=== PATIENT | female | born 2005 | race Two or more races ===

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

== ENCOUNTER 2025-05-09 23:25 | Emergency (ER) | payer BC, OTHER ==
[~2025-05-09] VITALS: Ht 170.2 cm; Wt 97.0 kg
[2025-05-10] MEDS ORDERED: ONDANSETRON HCL 4 MG/2 ML VIAL IM ONE
[2025-05-10] MEDS ORDERED: AZIT500T66 PO (00:05)
[2025-05-10] MEDS ORDERED: ZOFR4T PO (00:05)
[2025-05-10] MEDS ORDERED: PRED20TA2 PO (00:05)
--- NOTE | 2025-05-10 00:08 | ED.PDOC ---
Eye-HPI HPI Comments SORE THROAT AND BUMPS ON TONGUE FOR 1 WEEK. denies fevers and chills Chief Complaint: Sore Throat Time Seen by MD: 23:31 Primary Care Provider: Sammy Diehl Notes: Nurses Notes, Medications, Allergies Allergies: Coded Allergies: NO KNOWN ALLERGIES (Unverified , 04/11/12) Information Source: Patient Mode of Arrival: Ambulatory Family History Family History: Unknown Social History Smoker: Non-Smoker Alcohol: Denies ETOH Use Drugs: Denies Drug Use Lives In: Home Physical Exam General Appearance: No Apparent Distress, Normal HEENT: Pharynx Normal, Tonsillar Exudate (exudate) Neck: Full Range of Motion, Non-Tender Respiratory: Lungs Clear, No Respiratory Distress, Normal Breath Sounds Cardiovascular: No Edema, No JVD, No Murmur, No Gallop, Normal Peripheral Pulses, Regular Rate/Rhythm Breast Exam: Deferred Gastrointestinal: No Organomegaly, Non Tender, No Pulsatile Mass, Normal Bowel Sounds, Soft Genitalia: Deferred Pelvic: Deferred Rectal: Deferred Extremities: Normal capillary refill, Normal range of motion, No pedal edema Musculoskeletal : Apperance: Normal Neurologic: Alert, No Motor Deficits, Normal Affect, Normal Mood, No Sensory Deficits Cerebellar Function: Normal Reflexes: NOT DONE Skin: Dry, Normal Color, Warm Lymphatic: No Adenopathy Was a procedure done? Was a procedure done?: No EENT DIFF Eye: N/A Ear: N/A Nose: N/A Mouth: N/A Sore Throat: Damián's Angina, Peritonsillar Abscess, Peritonsillar Cellulitis, Pharyngitis, Streptococcal, Viral Pharyngitis X-Ray, Labs, Meds, VS Vital Signs Date Time Temp Pulse Resp B/P (MAP) Pulse Ox O2 Delivery O2 Flow Rate FiO2 05/09/25 23:26 98.6 78 18 130/81 98 98.6 Time of 1ST Reevaluation: 23:21 Reevaluation 1ST: Unchanged Time of 2ND Reevaluation: 00:05 Reevaluation 2ND: Improved Patient Education/Counseling: Diagnosis, Treatment Family Education/Counseling: Diagnosis, Treatment, Prognosis, Need For Follow Up SEPSIS Sepsis Screen Date sepsis recognized/suspect: May 09, 2025 Time Sepsis recognized/suspect: 2329 Recent Procedure: No On Antibiotic Therapy: No Respiratory Rate >20: No Heart Rate >90: No Temp<36 C (96.8 F) or >38.3 C: No SBP <90 or MAP <65 mmHG: No New Acute Mental Status Change: No Is the patient on CPAP, BIPAP,: No Physician Orders Ceftriaxone Sodium (Rocephin) (05/10/25 00:00) Dexamethasone Injection (Decadron Inject (05/10/25 00:00) Ondansetron Hcl (Zofran) (05/10/25 00:00) Vital Signs Date Time Temp Pulse Resp B/P (MAP) Pulse Ox O2 Delivery O2 Flow Rate FiO2 05/09/25 23:26 98.6 78 18 130/81 98 98.6 Departure 1 Departure Time of Disposition: 00:02 Impression: Primary Impression: Recurrent streptococcal tonsillitis Disposition: HOME / SELF CARE / HOMELESS Condition: Stable e-Prescriptions Ondansetron Odt 4MG Tab (ZOFRAN PO) 4 Mg Tb 4 MG PO TID PRN for 5 Days, #15 TAB ODT TAB-DISSOLVE IN MOUTH, THEN SWALLOW Prov: FOREST FELIPE 05/10/25 Prednisone (Prednisone) 20 Mg Tab 20 MG PO DAILY@BREAKFAST for 4 Days, #4 MG Prov: FOREST FELIPE 05/10/25 Azithromycin (Azithromycin) 500 Mg Tab 500 MG PO DAILY for 5 Days, #5 TAB Prov: FOREST FELIPE 05/10/25 Discharged With: Relative (Father) Critical Care Note Critical Care Time?: No Stability Stability form required: FOREST Patino May 10, 2025 00:08
[2025-05-10] MEDS: ONDANSETRON ODT 4 MG TAB PO ONE (00:20)
[2025-05-10] MEDS: cefTRIAXone SOD 1,000 MG VL IM ONE (00:20)
[2025-05-10 00:24] VITALS: BP 130/81; PULSE 78; RESP 18; TEMP 98.6; O2SAT 98
== END 2025-05-10 00:25 | disposition home or self-care (01) ==
LOC: ER 23:25
DX: J03.00 Acute streptococcal tonsillitis, unspecified (principal)
CPT/HCPCS: 96372; 99284; J0696; J1100; Q0162

== ENCOUNTER 2025-08-01 15:46 | Emergency (ER) | payer BC, OTHER ==
[~2025-08-01 15:46] MED LIST: AMOX875T4 PO
[2025-08-01] MEDS ORDERED: PRED20TA2 PO (17:13)
[2025-08-01] MEDS ORDERED: AUG875T PO (17:13)
== END 2025-08-01 15:47 | disposition left against medical advice (07) ==
LOC: ER 15:46
DX: J02.9 Acute pharyngitis, unspecified (principal); Z79.899 Other long term (current) drug therapy

== ENCOUNTER 2025-08-01 16:21 | Emergency (ER) | payer BC, OTHER ==
[~2025-08-01] VITALS: Ht 170.2 cm; Wt 99.0 kg
--- NOTE | 2025-08-01 16:53 | ED.PDOC ---
Eye-HPI HPI Comments 19-year-old female presents to the ED for a chief complaint of sore throat associated with difficulty swallowing that started 2-3 days ago. Patient reports previous similar symptoms in which her tonsils become enlarged. Patient denies any fever, chills, nausea, vomiting, or any other flu-like symptoms. Chief Complaint: Sore Throat Time Seen by MD: 16:49 Primary Care Provider: Sammy Reviewed Notes: Nurses Notes, Medications, Allergies Allergies: Coded Allergies: NO KNOWN ALLERGIES (Unverified , 04/11/12) Home Meds Active Scripts Amoxicillin & Pot Clavulanate (Amoxicillin/Potassium Cla) 875 Mg Tab, 1 TAB PO BID for 10 Days, #20 TAB 0 Refills Prov:KYLE CROFT 07/31/25 Discontinued Scripts Ibuprofen (Ibuprofen) 800 Mg Tab, 1 TAB PO TID PRN for 30 Days, #90 TAB Prov:FOREST FELIPE 06/29/25 Information Source: Patient Mode of Arrival: Ambulatory Timing: Days (2-3) Duration: Since onset Quality: Pain, Red Associated signs and symptoms: Sore Throat Past Medical History PAST MEDICAL HISTORY: Denies Surgical History: Denies all surgeries PLASTIC DUPLICATOR History: No Pertinent PLASTIC DUPLICATOR History Family History Family History: Unknown Social History Smoker: Non-Smoker Alcohol: Denies ETOH Use Drugs: Denies Drug Use Lives In: Home Constitutional: denies: chills, diaphoresis, fatigue, fever, malaise, sweats, weakness, others EENTM: reports: throat pain, throat swelling; denies: blurred vision, double vision, ear bleeding, ear discharge, ear drainage, ear pain, ear ringing, eye pain, eye redness, hearing loss, mouth pain, mouth swelling, nasal discharge, nose bleeding, nose congestion, nose pain, photophobia, tearing, voice changes, others Respiratory: denies: cough, hemoptysis, orthopnea, SOB at rest, shortness of breath, SOB with excertion, stridor, wheezing, others Cardiovascular: denies: chest pain, dizzy spells, diaphoresis, Dyspnea on exertion, edema, irregular heart beat, left arm pain, lightheadedness, palpitations, PND, syncope, others Gastrointestinal: denies: abdomen distended, abdominal pain, blood streaked bowels, constipated, diarrhea, dysphagia, difficulty swallowing, hematemesis, melena, nausea, poor appetite, poor fluid intake, rectal bleeding, rectal pain, vomiting, others Genitourinary: denies: abnormal vagina bleeding, burning, dyspareunia, dysuria, flank pain, frequency, hematuria, incontinence, pain, , vagina discharge, urgency, others Neurological: denies: dizziness, fainting, headache, left sided numbness, left sided weakness, numbness, paresthesia, pre-existing deficit, right sided numbness, right sided weakness, seizure, speech problems, tingling, tremors, weakness, others Musculoskeletal: denies: back pain, gout, joint pain, joint swelling, muscle pain, muscle stiffness, neck pain, others Integumetry: denies: bruises, change in color, change in hair/nails, dryness, laceration, lesions, lumps, rash, wounds, others Allergic/Immunocompromised: denies: Difficulty Healing, Frequent Infections, Hives, Itching, others Hematologic/Lymphatic: denies: anemia, blood clots, easy bleeding, easy bruising, swollen glands, others Endocrine: denies: excessive hunger, excessive sweating, excessive thirst, excessive urination, flushing, intolerance to cold, intolerance to heat, unexplained weight gain, unexplained weight loss, others Psychiatric: denies: anxiety, bipolar disorder, depression, hopeless, panic disorder, schizophrenia, sleepless, suicidal, others All Other Systems: Reviewed and Negative Physical Exam General Appearance: Moderate Distress HEENT: Tonsillar Exudate Neck: Full Range of Motion, Non-Tender, Normal, Normal Inspection Respiratory: Chest Non-Tender, Lungs Clear, No Accessory Muscle Use, No Respiratory Distress, Normal Breath Sounds Cardiovascular: No Edema, No JVD, No Murmur, No Gallop, Normal Peripheral Pulses, Regular Rate/Rhythm Breast Exam: Deferred Gastrointestinal: No Organomegaly, Non Tender, No Pulsatile Mass, Normal Bowel Sounds, Soft Genitalia: Deferred Pelvic: Deferred Rectal: Deferred Extremities: No calf tenderness, Normal capillary refill, Normal inspection, Normal range of motion, Non-tender, No pedal edema Musculoskeletal : Apperance: Normal Neurologic: Alert, agent licensing clerk II-XII nml as Tested, No Motor Deficits, Normal Affect, Normal Mood, No Sensory Deficits Cerebellar Function: Normal Reflexes: Normal Skin: Dry, Normal Color, Warm Peripheral Pulses: 3+ Radial (R), 3+ Radial (L) Lymphatic: No Adenopathy Was a procedure done? Was a procedure done?: No EENT DIFF Eye: N/A, Bacterial, Viral Sore Throat: Damián's Angina, Peritonsillar Abscess, Peritonsillar Cellulitis X-Ray, Labs, Meds, VS Vital Signs Date Time Temp Pulse Resp B/P (MAP) Pulse Ox O2 Delivery O2 Flow Rate FiO2 08/01/25 16:22 98.3 66 18 154/105 99 98.3 Patient alert. Came in because of sore throat. Vitals stable. Answering questions. On examination she does have enlarged tonsils with exudate. Was given Rocephin. Was given prescription of prednisone Augmentin antibiotic. Explained to the patient. Was told to follow up with her primary care physician. Was told to come back if there is any problem. Time of 1ST Reevaluation: 16:52 Reevaluation 1ST: Unchanged Patient Education/Counseling: Diagnosis, Treatment, Prognosis Family Education/Counseling: No Family Present SEPSIS Sepsis Screen Date sepsis recognized/suspect: Aug 01, 2025 Time Sepsis recognized/suspect: 4 Recent Procedure: No On Antibiotic Therapy: No Respiratory Rate >20: No Heart Rate >90: No Temp<36 C (96.8 F) or >38.3 C: No SBP <90 or MAP <65 mmHG: No New Acute Mental Status Change: No Is the patient on CPAP, BIPAP,: No Physician Orders Ceftriaxone Sodium (Rocephin) (08/01/25 17:15) Vital Signs Date Time Temp Pulse Resp B/P (MAP) Pulse Ox O2 Delivery O2 Flow Rate FiO2 08/01/25 16:22 98.3 66 18 154/105 99 98.3 Departure 1 Departure Time of Disposition: 17:07 Impression: Primary Impression: Acute tonsillitis Qualified Codes: J03.90 - Acute tonsillitis, unspecified Disposition: HOME / SELF CARE / HOMELESS Condition: Good e-Prescriptions Prednisone (Prednisone) 20 Mg Tab 20 MG PO DAILY for 3 Days, #3 MG Prov: CULLEN RIDER MD 08/01/25 Amoxicillin & Pot Clavulanate (AUGMENTIN TABLET) 875 Mg Tb 875 MG PO BID for 10 Days, #20 TAB Prov: CULLEN RIDER MD 08/01/25 Discharged With: Self Critical Care Note Critical Care Time?: No Stability Stability form required: No I personally scribed for [facility] on 08/01/25 at 16:53. Electronically submitted by Constanza Schrader ([facility]). CULLEN RIDER MD Aug 01, 2025 16:53
[2025-08-01] MEDS ORDERED: AUG875T PO (17:13)
[2025-08-01] MEDS ORDERED: PRED20TA2 PO (17:13)
[2025-08-01] MEDS ORDERED: cefTRIAXone W LIDOCAINE 1 GM IM IM ONE (17:15)
[2025-08-01] MEDS: cefTRIAXone SOD 1,000 MG VL IM ONE (17:25)
[2025-08-01 17:26] VITALS: BP 133/75; TEMP 97.9
[2025-08-01 17:27] VITALS: PULSE 95; RESP 19; O2SAT 97
== END 2025-08-01 17:36 | disposition home or self-care (01) ==
LOC: ER 16:21 → EEVIPCON 16:21 → ER 17:34
DX: J03.90 Acute tonsillitis, unspecified (principal); Z79.899 Other long term (current) drug therapy
CPT/HCPCS: 96372; 99283; J0696